=== PATIENT | female | born 1995 | race Caucasian/White ===

== ENCOUNTER 2020-12-14 21:42 | Observation (INO) | payer OTHER ==
[~2020-12-14] VITALS: Ht 154.9 cm; Wt 58.5 kg
--- NOTE | 2020-12-15 01:52 | NUR ---
pt ARRIVED TO FLOOR 0120. THIS RN IN TO DO ADMISSION. pt ABLE TO TRANSFER SELF FROM STRETCHER TO BED. pt KEPT EYES CLOSED THROUGHOUT ASSESSMENT. LUNGS CLEAR, BOWEL TONES ACTIVE. PULSES WELL FELT. pt REPORTED 5/10 PAIN IN RIGHT FLANK. pt RESPONDED TO QUESTIONS WITH A VERY QUIET YES OR NO. BOYFRIEND CHRIS ON PHONE. pt SPOKE IN A LOUDER VOICE, TOLD CHRIS THE PLAN FOR SURGERY TOMORROW. PRN PAIN MEDICATION GIVEN AND IVF INFUSING PER ORDERS (SEE MAR). CALL LIGHT WITHIN REACH.
--- NOTE | 2020-12-15 03:15 | NUR ---
ROUNDED ON pt. RESTING IN BED WITH EYES CLOSED, RESPIRATIONS REGULAR AND UNLABORED. RATE 15. CALL LIGHT WITHIN REACH.
--- NOTE | 2020-12-15 04:14 | NUR ---
ROUNDED ON pt. RESTING IN BED, SHAKING. TOOK TEMP, UNABLE TO TAKE ORALLY DUE TO pt SHAKING AND CHILLS. AXILLARY WNL. PROVIDED WARM BLANKES. DENIED NEED TO URINATE. UNABLE TO GET BP AT THIS TIME. CALL LIGHT WITHIN REACH.
--- NOTE | 2020-12-15 05:30 | NUR ---
CALLED DR KOCH TO UPDATE ON TEMPERATURE OF 103.2, CHILLS, PAIN, LOW BLOOD PRESSURES, URINE OUTPUT. MD ORDERED LABS, TYLENOL, TORADOL, AND ANTIBIOTIC. INPUT ORDERS. MD WILL BE IN TO ASSESS IN THE NEXT FEW HOURS.
--- NOTE | 2020-12-15 07:30 | NUR ---
REPORT RECIEVED. PATIENT RESTING AT THIS TIME. IV STARTED TO RIGHT HAND.
--- NOTE | 2020-12-15 07:35 | NUR ---
ASSESSMENT DONE. TO OR VIA STRETCHER.
--- NOTE | 2020-12-15 09:34 | NUR ---
[facility] NON RESPONSIVE TO NOXIOUS STIMULI WITH OPA IN PLACE. TRANSFERRED PT TO BED WITH 4 PERSON ASSIST. 899 PT REACTIVE. OPA REMOVED. 904 OXYGEN SATS 80-88% ON RA. O2 AT 4L VIA NC PLACED AND ENCOURAGED COUGH, DEEP BREATHING. SATS INCREASED TO 90%. 0915 RESTING. REU. 0930 NO C/O'S. AWAKENS TO VERBAL STIMULI.
--- NOTE | 2020-12-15 09:35 | NUR ---
REPORT RECIEVED FROM YOUTH CAREER SPECIALIST. PATIENT IS VERY SLEEPLY, WILL FOLLOW COMMANDS. IVF PATENT AT 125 ML/HR. O2 AT 4 L NC. DENEIS PAIN AT THIS LAUREN.
--- NOTE | 2020-12-15 10:40 | NUR ---
DR. IQBAL CONSULTING ON PATIENT. ORDERS RECIEVED TO PLACE RODRIGUES CATH AND LR BOLUS HUNG. BP 74/46. PATIENT UPDATED ON POC. PATIENT IS ON DAY NUMBER 5 OF PERIOD. IMMODIUM HELD HAS NOW FUTHER DIARRHEA. PATIENT DENIES NAUSEA OR PAIN.
--- NOTE | 2020-12-15 10:45 | NUR ---
RODRIGUES CATH PLACED W/O DIFFICULTY WITH RETURN OF 30 ML OF CONCENTRATED URINE.
--- NOTE | 2020-12-15 12:35 | NUR ---
DR. IQBAL UPDATED ON PATIENT JUNCTIONAL RHYTHM AND BP, ORDERS RECIEVED TO DO EGK. PATIENT DENIES CHEST PAIN STATES HER HEART FEELS DIFFERENT. FEELS SHORT OF BREATH.
--- NOTE | 2020-12-15 12:40 | NUR ---
LEVOPHED GTT TO OFF.
--- NOTE | 2020-12-15 12:45 | NUR ---
EKG COMPLETE. PATIENT IS VERY RESTFUL. DENIES PAIN OR NAUSEA.
--- NOTE | 2020-12-15 13:14 | NUR ---
BP-81/51MAP-61. LEVOPHED GTT RESTARTED AT 0.2 MCG/MIN.
--- NOTE | 2020-12-15 13:30 | NUR ---
VERY TIRED. SAT UP IN BED TO TAKE LUNCH.
--- NOTE | 2020-12-15 15:06 | NUR ---
SPOKE WITH STAFF. PATIENT TOO DROWSY TO ASSESS. CM WILL FOLLOW LATER.
--- NOTE | 2020-12-15 15:35 | NUR ---
levophed gtt increased to 1.2 mcg/min. PATIENT REMAINS VERY TIRED. HAS BEED SLEEPING MOST OF AFTERNOON.
--- NOTE | 2020-12-15 16:21 | NUR ---
DR. IQBAL UPDATED ON PATIENT, ORDERS RECIEVED TO DC GENTAMYCIN TROUGH. CURRENT LEVOPHED DOSE AT 1.8 MCG/MIN. ASSESSMENT DONE.
--- NOTE | 2020-12-15 18:50 | NUR ---
DENIES PAIN. SCDS, RODRIGUES CATH, IN PLACE IVF 125 ML/HR, LEVOPHED GGT AT 1.8 MCG/MIN, IV ABX INFUSING. ATTEMPTING TO EAT DINNER. DENIES NAUSEA. NO FUTHER CHANGES.
--- NOTE | 2020-12-15 19:05 | NUR ---
REPORT TO NEXT SHIFT.
--- NOTE | 2020-12-15 19:31 | NUR ---
RECEIVED REPORT FROM [facility]. pt RESTING IN BED WITH EYES CLOSED, RESPIRATIONS REGULAR RATE 15. HR 75 LEVOPHED GTT 1.6. IV PATENT. CALL LIGHT WITHIN REACH.
--- NOTE | 2020-12-15 19:39 | NUR ---
SINCE 1609 TODAY LEVOPHED GTT HAS BEEN AT 1.6 MCG/MIN NOT 1.8 MCG/MIN CHARTED.
--- NOTE | 2020-12-15 20:42 | NUR ---
POSITIVE BLOOD CULTURES DR IQBAL NOTIFIED, NEW ORDERS FOR REPEAT BLOOD CULTURES IN AM. DR KOCH NOTIFED NO NEW ORDERS AT THIS TIME.
--- NOTE | 2020-12-15 22:33 | EKG ---
[facility] [address] [place], [place] [address] Signed Sinus rhythm with marked sinus arrhythmia Otherwise normal ECG No previous ECGs available Confirmed by AARON IQBAL DO ([id number]) on 12/15/2020 10:33:43 PM Electronically Signed By: AARON IQBAL DO 12/15/202232 PATIENT NAME: KRIS VENTURA Electrocardiogram DATE OF : [birth year] PHYSICIAN: AARON IQBAL DO REPORT #: [id number] REPORT IS CONFIDENTIAL AND NOT TO BE RELEASED WITHOUT AUTHORIZATION
--- NOTE | 2020-12-15 22:45 | NUR ---
IRMA OLMOS AND MATHEUS OLMOS IN ROOM TO START IV.
--- NOTE | 2020-12-15 23:30 | NUR ---
VANCO AND MERREM STARTED AT ORDERED RATES. pt HEART RATE DECREASED TO 40'S, JUNCTIONAL RHYTHM. ALL IV FLUIDS STOPPED. pt REPORTED FEELING "A LITTLE" SHORT OF BREATH. NOTED MERREM WAS PIGGYBACK TO NOREPI GTT LIKELY CAUSING A BOLUS. MOVED MERREM TO SEPARATE LINE. pt HR INCREASED TO 60'S SINUS RHYTHM. BP LOW 100'S SYSTOLIC, VERIFIED WITH MANUAL BLOOD PRESSURE. pt REPORTS SHE IS FEELING BETTER, DENIES PAIN. REPORTS SHE HAS DISCOMFORT IN HER ABD AND IS FEELING BLOATED. HYPERACTIVE BOWEL TONES, LUNGS CLEAR. RESPIRATIONS EVEN AND UNLABORED. CALL LIGHT WITHIN REACH.
--- NOTE | 2020-12-15 23:40 | NUR ---
NOTIFIED DR IQBAL OF pt RHYTHM CHANGE AND INTERVENTIONS. ORDERS TO DC VANCO AFTER THIS DOSE FINISHES INFUSING. NO OTHER ORDERS AT THIS TIME.
--- NOTE | 2020-12-16 00:48 | NUR ---
ROUNDED ON pt. RESTING IN BED WITH EYES CLOSED, RESPIRATIONS REGULAR AND UNLABORED. RODRIGUES DRAINING CLEAR DILUTE URINE. IV'S PATENT. CALL LIGHT WITHIN REACH.
--- NOTE | 2020-12-16 02:00 | NUR ---
ROUNDED ON pt. BOTH IVS ARE PATENT. pt WOKE TO VOICE, REPORTED THAT HEADACHE AND ABD BLOATING IS GONE. NO REQUESTS AT THIS TIME. RODRIGUES EMPTIED. CALL LIGHT WITHIN REACH.
--- NOTE | 2020-12-16 02:56 | NUR ---
ROUNDED ON pt. RESTING IN BED WITH EYES CLOSED, RESPIRATIONS REGULAR AND UNLABORED. RODRIGUES DRAINING DILUTE URINE. IV'S INFUSING. CALL LIGHT WITHIN REACH.
--- NOTE | 2020-12-16 06:14 | NUR ---
IN TO DO ASSESSMENT. pt WOKE TO VOICE. COLD AND CLAMMY. UP TO CHAIR pt WIPED DOWN WITH WARM WIPES. FRESH GOWN AND LINENS. SCANT AMOUNT OF BLOOD NOTED ON CHUX FROM MENSES. CATHETER HAS YELLOW URINE OUTPUT. BLOOD RETURN FROM RIGHT ARM IV, LABS DRAWN. pt BACK TO BED. WARM BLANKETS PROVIDED. TEMP LOW. pt IS ALERT AND ORIENTED. LUNG SOUNDS ARE CLEAR. BOWEL TONES ARE ACTIVE. CALL LIGHT WITHIN REACH.
--- NOTE | 2020-12-16 09:15 | NUR ---
PT IV SITE IN LEFT AC IS PAINFULL TO FLUSH, HOWEVER RETURNS BLOOD EASILY AND SHOWS NO SYMPTOMS OF INFILTRATION OR PHLEBITUS. PT IS ALERT AND ORIENTED X4, HOWEVER HAS A FLAT AFFECT. PT ABLE TO EAT 75% OF HER BREAKFAST. PT THEN BRUSHES OWN TEETH AND WASHES FACE WHEN GIVEN SUPPLIES. PT C/O BLADDER SPASUMS, BELLADONNA SUPPOSITORY GIVEN, AZO GIVEN FOR URETHERAL PAIN. PT MOVES EASILY IN THE BED. VITALS ARE WNL.
[2020-12-16] MEDS ORDERED: ACYCLOVIR400 MG PO (10:02)
--- NOTE | 2020-12-16 10:03 | NUR ---
MED REC COMPLETE
--- NOTE | 2020-12-16 14:17 | NUR ---
ORDERRS RECIEVED TO EVALUATE NUNU FOR POSSIBLE PICC INSERTION. AFTER REVIWING THE CHART AND INTERVIEWING THE PATIENT, NO ABSOLUTE CONTRAINDICATIONS WERE FOUND. RISKS AND COMPLICATIONS OF PICC INSERTION WERE DISCUSSED AND INFORMED CONSENT WAS SIGNED PRIOR TO THE START OF THE PROCEDURE. THE LEFT ARM WAS INITALLY AVOIDED DUE TO AN INDWELLING IV IN THE LEFT BASILIC VEIN WHERE WE WOULD USUALLY INSERT A PICC. THE RIGHT ARM WAS EVALUATED AND BOTH THE RIGHT BASILIC AND RIGHT BRACHIAL VEINS WERE FOUND TO BE LARGE ENOUGH TO ACCEPT A 4FR PICC WHILE ONLY OCCUPYING 35% OF THE VEIN. THE LEFT ARM WAS STERILLY PREPPED AND DRAPED AND 1% LIDOCANE WAS USED. ACCESS TO THE LEFT BRACHIAL VEIN WAS OBTAINED WITH DIFFICULTY AND THE PATIENT DID NOT TOLERATE THIS WELL. THE GUIDEWIRE PASSED UP THE VEIN AND INTRODUCER FOLLOWED THE GUIDE WIRE WITHOUT DIFFICULTY. BRISK DARK RED NONPULSATILE BLOOD WAS SEEN FLOWING FROM THE INTRODUCER AND THE PICC WAS INSERTED. UNFORTUNATELY, THE PICC LINE WOULD NOT PASS THE SHOULDER AND RESISTANCE WAS FELT. DESPITE MULTIPLE PATIENT POSITIONING AND PASSES, THE PICC NEVER PASSED THE SHOULDER. THE SITE WAS ABANDONED AND ATTENTION TURNED TO THE BRACIAL VEIN. ACCESS WAS OBTAINED WITOUT SYMPTOMS OF NERVE INJURY. UNFORTUNATELY, THE GUIDEWIRE WOULD NOT PASS UP THE VEIN DESPITE BRISK DARK RED NONPULSATILE FLOW FROM THE IV. A DRESSING WAS APPLIED AND A NEW PICC KIT WAS OPENED AFTER EVALUATING THE RIGHT ARM. THE RIGHT ARM WAS EVALUATED AND THE RIGHT BASILIC VEIN IS NOT SUITABLE DUE TO AN INDWELLING IV TAKING UP THE BEST INSERTION SITE. THE RIGHT CEPHALIC VEIN IS SEEN TO BE LARGE ENOUGH FOR A 4FR PICC PER U/S AND THERE WAS NO DIFFICULTY ACCESSING THIS VEIN. THE GUIDEWIRE PASSED UP THE VEIN WITHOUT PROBLEMS AND THE INTRODUCER FOLLOWED WITHOUT DIFFICULTY. THE PICC WAS SEEN ON MAGNET TRACKING TO BE IN THE REGION OF THE RIGHT SHOULDER BUT FRIM RESISTANCE WAS AGAIN FELT. THE PATIENT WAS REPOSITIONED MULTIPLE TIMES WITH NO CHANGE IN RESULT. THE TRACKER WIRE WAS BACKED OUT OF THE TIP OF THE LINE TO ATTEMPT TO ALLOW A SOFTER LINE TIP IN THE HOPES IT WOULD NAVIGATE THE VASCULATURE AND DECEND INTO A CENTRAL LOCATION IN THE CHEST BUT THIS DID NOT HAPPEN. THE SITE WAS ULTIMATELY ABANDONED AND REPORT GIVEN TO THE PRIMARY CCU RN. BOTH ARMS ARE DRESSED WITH STERILE GAUZE AND TAPE. THE PATIENT DID NOT TOLERATE THIS PROCEDURE VERY WELL AND MAY BENIFIT FROM A SEDATIVE MEDICATION PRIOR TO ATTEMPTING OTHER CENTRAL ACCESS.
--- NOTE | 2020-12-16 16:14 | NUR ---
TRIED CONTACTING [facility] TO SEE IF DR. TSANG COULD FOLLOW UP WITH PATIENT FOR AN EVALUATION OF RIGHT URETERAL STONE EXTRACTION. HIS OFFICE INFORMED ME THAT THEY ARE TOO FULL WITH REFERRALS AND LOW ON PROVIDERS. I LET DR. KOCH KNOW AND SHE ASKED ME TO CALL [facility] TO CHECK. I CALLED AND LEFT A MESSAGE WITH THE COKE HANDLING SUPERVISOR AND HAVE NOT HEARD BACK. WILL CALL AND LEAVE ANOTHER MESSAGE.
--- NOTE | 2020-12-16 19:23 | OR ---
[facility] [address] [place], [place] [address] Signed DATE OF OPERATION: 12/15/2020 SURGEON: Olga Koch MD PREOPERATIVE DIAGNOSES: 1. A 6 x 4 mm right ureteropelvic junction calculus. 2. Sepsis, secondary to #1. 3. Urinary tract infection. 4. Coronavirus disease positive. POSTOPERATIVE DIAGNOSES: 1. A 6 x 4 mm right ureteropelvic junction calculus. 2. Sepsis, secondary to #1. 3. Urinary tract infection. 4. Coronavirus disease positive. NAMES OF PROCEDURES: Diagnostic cystoscopy with right ureteral stent insertion. ANESTHESIA: General. ESTIMATED BLOOD LOSS: None. COMPLICATIONS: None. SPECIMENS: None. DRAINS: A 6 x 22 cm double-J ureteral stent inserted into the right collecting system. INDICATIONS FOR PROCEDURE: Ms. Ventura is a very pleasant 25-year-old female with a history of recently diagnosed nephrocalcinosis, who presented to the emergency department late last night with a 5-day history of progressively worsening right flank pain, fevers and chills. She denied any dysuria or gross hematuria at the time of intake into the emergency department. She underwent a urinalysis, which revealed an active UTI and she was also noted to be Electronically Signed By: OLGA KOCH MD 12/16/201922 PATIENT NAME: KRIS VENTURA OPERATIVE REPORT DATE OF : [birth year] REPORT #: [id number] PHYSICIAN: OLGA KOCH MD PCP: OTHER PCP REPORT IS CONFIDENTIAL AND NOT TO BE RELEASED WITHOUT AUTHORIZATION [facility] [address] [place], [place] [address] Signed tachycardic and mildly hypotensive. They initiated a sepsis workup, which included a CT scan, which revealed a 6 x 4 mm right ureteropelvic junction calculus with associated mild hydronephrosis. Also, noted on the CT scan was bilateral nephrocalcinosis. She was admitted immediately and placed on IV antibiotics and made n.p.o. in preparation for surgery. She now presents this morning to undergo emergent cystoscopy with right ureteral stent insertion. Also of note, the patient is COVID positive as per routine testing in the emergency department last night. The patient denies any active symptoms i.e., cough or shortness of air. OPERATIVE FINDINGS: On cystoscopy, there was no evidence of any suspicious masses, lesions, or stones. Bilateral ureteral orifices are in their normal anatomic location. Of note, there appears to be no evidence of efflux from the right ureteral orifice. The right ureter was cannulated using a Sensor wire without difficulty and over the Sensor wire, a 6 x 22 cm double-J ureteral stent was inserted into the patient's right collecting system under direct visualization without difficulty. Just after induction of anesthesia, the patient experienced a significant bout of diarrhea, which is most likely a manifestation of her COVID infection. DESCRIPTION OF PROCEDURE: After informed consent was obtained, the patient was taken back to the operating room. She was transferred [facility] to the operating room table, where general anesthesia was induced. She was placed in the dorsal lithotomy position and the genitalia prepped and draped in standard sterile fashion. Using a 30-degree lens on a 22.5-Djiboutian introducer, rigid cystoscope was inserted through urethra into her bladder under direct visualization. Panendoscopic views of the bladder were then obtained. Please see above findings. Attention was turned to the right ureteral orifice. A 0.035 Sensor wire was inserted into the right ureteral orifice and up into the right kidney. Proper placement of the wire was confirmed on fluoroscopy. I could also appreciate the 6 mm stone present at the right UPJ. A 6 x 22 stent was passed over the wire into the right collecting system under direct visualization. With the wire pulled, I could appreciate an adequate proximal coil within the right renal pelvis. Along with an adequate distal coil noted in the bladder on cystoscopy. The patient's bladder was then drained and the procedure was terminated. The patient tolerated the procedure well without any complication. Her vitals remained stable throughout surgery with assistance of a pressor that was given during induction. DISPOSITION: The patient will be transferred back to the ICU for continued close monitoring. She will be continued on IV Rocephin and IV gentamicin and we will continue follow her urine Electronically Signed By: OLGA KOCH MD 12/16/20 192 PATIENT NAME: KRIS VENTURA OPERATIVE REPORT DATE OF : [birth year] REPORT #: [id number] PHYSICIAN: OLGA KOCH MD PCP: OTHER PCP REPORT IS CONFIDENTIAL AND NOT TO BE RELEASED WITHOUT AUTHORIZATION [facility] [address] [place] [id number] Signed and blood cultures. Her regular diet will be advanced as tolerated and she will be given pain control as needed. The plan is for her to be discharged to home once she remains afebrile for at least 24 hours. A repeat CBC and BMP will be performed tomorrow morning. Olga Koch MD AR/MODL /[id number] Copies: ~ Electronically Signed By: OLGA KOCH MD 12/16/20 1923 PATIENT NAME: KRIS VENTURA OPERATIVE REPORT DATE OF : [birth year] REPORT #: [id number] PHYSICIAN: OLGA KOCH MD PCP: OTHER PCP REPORT IS CONFIDENTIAL AND NOT TO BE RELEASED WITHOUT AUTHORIZATION
--- NOTE | 2020-12-16 19:37 | NUR ---
RECEIVED REPORT FROM [facility]. NOREGISSELLE GTT STARTED AT 1MCG/MIN. pt RESTING IN BED. EYES CLOSED, RESPIRATIONS REGULAR AND UNLABORED. CALL LIGHT WITHIN REACH.
--- NOTE | 2020-12-16 19:39 | NUR ---
PT IN BED MOST OF THE DAY RESTING. ATTEMPT MADE TO PALCE A PICC LINE BY TRISTEN OLMOS, WITH NO SUCCESS. PT VASCULAR ACCESS WAS A CONCERN THIS SHIFT, DISCUSSED BETWEEN DR. IQBAL AND DR. MARIE TO POSSIBLY PLACE A CENTRAL LINE IF NEEDED. ADDITIONAL PERFERIAL LINE PLACE IN PT RT WRIST BY ISMA Abreu RN. PT ABLE TO MAINOR MOSTLY BROTH, CRACKERS, JUICE, AND STRAWBERRIES. PT SHOWERED HERSELF WITH SOME ASSISTANCE. AMBULATES WELL IN THE ROOM. RODRIGUES CATH REMOVED AT 1440, PT DUE TO VOID. PT REMAINS ALERT AND ORIENTED X4 ALL SHIFT, EMOTIONAL AND TEARFULL AT TIMES. ALL LINENS CHANGED. BP REMAINS SOFT, LEVO DRIP OFF AT ABOUT 1435, PO MEDS GIVEN INSTEAD. PT NOW HAS COMMODE AT SIDE OF THE BED TO VOID. PT REMAINS ON ROOM AIR ALL SHIFT.
--- NOTE | 2020-12-16 23:21 | NUR ---
NEW MEDICATION ORDERS FROM MD. MIXED MEDICATION WITH MACHINE HEEL BUILDER NICKOLAS SOLIS. PHENYLEPHRINE GTT STARTED AT 50 MCG/MIN. IRMA OLMOS DOUBLE VERIFIED PUMP SETTINGS. pt RESTING IN BED WITH EYES CLOSED, AND RESPIRATIONS REGULAR AND UNLABORED CALL LIGHT WITHIN REACH.
--- NOTE | 2020-12-17 00:24 | NUR ---
ROUNDED ON pt. ASSESSMENT DONE. pt DID NOT WAKE. URINE EMPTIED FROM BSC. IV PATENT. NO CHANGES IN ASSESSMENT. CALL LIGHT WITHIN REACH.
--- NOTE | 2020-12-17 02:20 | NUR ---
CALL LIGHT ON. pt REQUESTED WATER, PROVIDED. pt REPORTED FEELING FEVERISH, TEMPERATURE CHECKED BOTH ORAL AND TEMPORAL. BOTH 98.6. IV SITE PATENT. CALL LIGHT WITHIN REACH.
--- NOTE | 2020-12-17 03:38 | NUR ---
IV PUMP BEEPING, ERROR RESOLVED. pt RESTING IN BED ON RIGHT SIDE. RESTING WITH EYES CLOSED, RESPIRATIONS REGULAR AND UNLABORED CALL LIGHT WITHIN REACH.
--- NOTE | 2020-12-17 06:02 | NUR ---
pt WOKE FOR TEMPERATURE, DENIES PAIN AT THIS TIME. VERY DROWSY. ASSESSMENT DONE. NO CHANGES. LUNGS CLEAR. IV'S PATENT RIGHT UPPER ARM DRAWS BACK BLOOD. CONTINUOUS INFUSION. PROVIDED FRESH ICE WATER. CALL LIGHT WITHIN REACH.
--- NOTE | 2020-12-17 09:30 | NUR ---
PT UP OUT OF BED EASILY AND AMBULATES TO THE CHAIR AND SITS DOWN. BLOOD DRAWN FROM UPPER RT ARM IV SITE EASILY. PT DENIES SOB. PT REPORTS NAUSEA, AND IS GIVEN 8 MG PO ZOFRAN, PT REPORTS 6/10 LOWER ABD PAIN AND IS GIVEN 1 TAB OF PERCOSET. PT AWAKE AND ALERT X4, RESPONDS APPROPRIATLY. PT GIVEN FRESH WATER AND BREAKFAST. BOTH IV SITES ARE INTACT, NO REDNESS OR SWELLING NOTED, PT DENIES PAIN AT EITHER SITE. AFTER SITTING UP FOR ABOUT 20 MINUTES, PT RETURNS TO BED. CALL LIGHT IS WITHIN REACH.
--- NOTE | 2020-12-17 11:36 | NUR ---
PT BP AT 74/42, PHENYLEPHRINE DRIP RESTARTED 50MCG/MIN.
--- NOTE | 2020-12-17 12:30 | NUR ---
ECHO FINISHED IN PT ROOM.
[2020-12-17] MEDS ORDERED: MIDODRINE HCL10 MG PO (17:31)
[2020-12-17] MEDS ORDERED: CEFPODOXIME PR200 MG PO (17:33)
--- NOTE | 2020-12-17 17:35 | NUR ---
PT REPORTS THAT SHE IS ADAMANT ABOUT LEAVING AMA. THIS RN DISCUSSED IN DEPTH THE RISKS OF THIS PLAN, AND DISCUSSING ALL THE THERAPY AND MEDICATIONS THAT SHE IS GETTING AT THIS TIME. PT REMAINS SET ON LEAVING. DR. IQBAL THEN IN THE ROOM AND DISCUSSED AT SOME LENGTH THE RISKS OF THIS DECISION. THEN ASKED THE PT TO VERBALIZE BACK TO HIM WHAT HE HAD TOLD HER, PT IS ABLE TO CLEARLY ARTICULAT WHAT HAD STATED. PT STILL ADAMANT TO LEAVE. IS SENDING SCRIPTS TO THIS PT'S LOCAL PHARMACY. BOTH IV SITES TAKEN OUT, THE TIPS OF BOTH CATHS ARE INTACT. PT ASSISTED WITH GATHERING HER BELONGINGS, THEN ESCORTED OUT THE BACK DOOR. PT IS AWARE THAT SHE NEEDS TO FOLLOW UP AND HAVE HER URITAL STENT REMOVED IN THE NEXT 2 WEEKS. SHE VERBALIZES HER UNDERSTANDING.
== END 2020-12-17 17:45 | disposition left against medical advice (07) ==
LOC: ED 21:42 → CCU 12-15 01:19 → ED 12-15 01:19 → CCU 12-15 01:21 → MS 12-15 05:55 → CCU 12-15 05:55 → MS 12-15 05:56 → ED 12-15 21:44 → CCU 12-15 21:44
PROVIDERS: ADMIT Urology; ATTEND Urology
PROC: 0T768DZ Dilation of Right Ureter with Intraluminal Device, Via Natural or Artificial Opening Endoscopic (ICD-10-PCS; 2020-12-15)
PROC: 0T768DZ Dilation of Right Ureter with Intraluminal Device, Via Natural or Artificial Opening Endoscopic (ICD-10-PCS; principal; 2020-12-15 07:30)
DX: A41.51 Sepsis due to Escherichia coli [E. coli] (principal); N13.6 Pyonephrosis; R65.21 Severe sepsis with septic shock; U07.1 COVID-19; R00.1 Bradycardia, unspecified; E83.59 Other disorders of calcium metabolism; N29 Other disorders of kidney and ureter in diseases classified elsewhere; F17.200 Nicotine dependence, unspecified, uncomplicated; F15.10 Other stimulant abuse, uncomplicated; Z53.29 Procedure and treatment not carried out because of patient's decision for other reasons
CPT/HCPCS: 00918; 74176; 76000; 80048; 80053; 80170; 81001; 83605; 83690; 83735; 84703; 85007; 85025; 87040; 87088; 93005; 93010; 93306; 96374; 96375; 96376; 99285-25; C1769; C2617; C9803; G0378; J0330; J0696; J1100; J1170; J1580; J1885; J2001; J2185; J2370; J2405; J2704; J3010; J3370; J3475; J7030; J7060; J7121; U0003

== ENCOUNTER 2021-03-02 19:03 | Emergency (ER) | payer OTHER ==
[~2021-03-02] VITALS: Ht 154.9 cm; Wt 55.0 kg
[~2021-03-02 19:03] MED LIST: ACYCLOVIR400 MG PO; CEFPODOXIME PR200 MG PO; MIDODRINE HCL10 MG PO
--- OUTSIDE RECORDS SUMMARY | 2021-03-02 19:10 | XMS ---
PreManage Notification: KRIS VENTURA [employer] Events No recent Security Events currently on file CRITERIA MET - ED - Positive COVID-19 Lab Result - [facility] - [facility] - 3 Facilities in 90 Days CARE PROVIDERS TERESSA ARSHAD Nurse Practitioner Current PHONE: [phone] Norma has no Care Guidelines for this patient. E.Ramana. VISIT COUNT (12 MO.) 1 [facility] 7 [facility] 1 [facility] TOTAL 9 NOTE: Visits indicate total known visits. ED/UCC VISIT TRACKING (12 MO.) 03/02/2021 19:04 ELSIE Arreola TYPE: Emergency COMPLAINT: - POST OP PROBLEM [facility] DIAGNOSES: - back pain, kidney stone, fever, left leg numbness - Calculus of kidney - Flank Pain 01[facility]07/2021 12[facility] DIAGNOSES: - Presence of urogenital implants - Poss Kidney Stone/Stent Removal - Calculus of ureter - Medical Problem (Minor) 01/03/2021 05:05 [facility] Al EDWARDS TYPE: Emergency DIAGNOSES: - Unspecified hydronephrosis - Unspecified abdominal pain - Calculus of ureter - Flank Pain - Pain due to genitourinary prosthetic devices, implants and grafts, initial encounter - Hematuria, unspecified - Back Pain 12[facility]13[facility]2020 10[facility] DIAGNOSES: - fever, back pain - Procedure and treatment not carried out due to patient leaving prior to being seen by health care provider 08/04/2020 13:27 [facility] DIAGNOSES: - Flank Pain - Poss Kidney Stone - Tubulo-interstitial nephritis, not specified as acute or chronic 07/02/2020 15:05 [facility] DIAGNOSES: - Constipation - Back Pain - Acute cystitis with hematuria - Constipation, unspecified 06/23/2020 11:51 [facility] Emergency DIAGNOSES: - Medical Problem (Minor) - needs covid test - Encounter for observation for suspected exposure to other biological agents ruled out 05/06/2020 05:24 [facility] DIAGNOSES: - Flank Pain - poss kidney infection - Dysuria INPATIENT VISIT TRACKING (12 MO.) 12/15/2020 01:21 ELSIE Arreola TYPE: Observation COMPLAINT: - SEPSIS,R URETERAL STONE,COVID+ DIAGNOSES: - Other stimulant abuse, uncomplicated - Bradycardia, unspecified - Procedure and treatment not carried out because of patient's decision for other reasons - Nicotine dependence, unspecified, uncomplicated - Pyonephrosis - Sepsis due to Escherichia coli [E. coli] - Severe sepsis with septic shock - Other disorders of kidney and ureter in diseases classified elsewhere - Other disorders of calcium metabolism - COVID-19 [email or web address]
[2021-03-02] MEDS ORDERED: LEVOFLOXACIN500 MG PO (22:17)
--- NOTE | 2021-03-03 21:22 | EKG ---
[facility] [address] [facility] [place] [address] Signed Sinus tachycardia Rightward axis Borderline ECG When compared with ECG of 15-DEC-2020 12:45, Vent. rate has increased BY 47 BPM Confirmed by AARON IQBAL DO ([id number]) on 03/03/2021 9:22:33 PM Electronically Signed By: AARON IQBAL DO 03/03/212121 PATIENT NAME: VENTURAKRIS Electrocardiogram DATE OF : [birth year] PHYSICIAN: AARON IQBAL DO REPORT #: [id number] REPORT IS CONFIDENTIAL AND NOT TO BE RELEASED WITHOUT AUTHORIZATION
== END 2021-03-02 22:25 | disposition home or self-care (01) ==
LOC: ED 19:03
DX: T83.113A Breakdown (mechanical) of other urinary stents, initial encounter (principal); F15.10 Other stimulant abuse, uncomplicated; Z91.19 Patient's noncompliance with other medical treatment and regimen; N39.0 Urinary tract infection, site not specified; F17.200 Nicotine dependence, unspecified, uncomplicated
CPT/HCPCS: 71045; 74176; 80053; 81001; 83605; 84703; 85025; 87088; 93005; 93010; 96365; 96375; 99284-25; J0696; J1885; J7030

== ENCOUNTER 2024-03-19 22:18 | Emergency (ER) | payer OTHER ==
[~2024-03-19] VITALS: Ht 154.9 cm; Wt 62.5 kg
[~2024-03-19 22:18] MED LIST changes: +LEVOFLOXACIN500 MG PO
[2024-03-19] MEDS ORDERED: HYDRALAZINE HCL10 MG PO (22:44)
[2024-03-19] MEDS ORDERED: CLONIDINE HCL0.1 MG PO (22:45)
[2024-03-19] MEDS ORDERED: NEOMYCIN/POLYMYXIN/HYDROCORT 10 ML HOME.PACK OTIC ONE (22:45)
[2024-03-19 22:59] VITALS: BP 128/93
== END 2024-03-19 22:58 | disposition home or self-care (01) ==
LOC: ED 22:18
DX: H60.92 Unspecified otitis externa, left ear (principal); F17.200 Nicotine dependence, unspecified, uncomplicated
CPT/HCPCS: 99282